=== PATIENT | male | born 1985 | race Caucasian/White ===

== ENCOUNTER 2017-05-27 07:58 | Emergency (ER) | payer OTHER ==
[~2017-05-27] VITALS: Ht 172.7 cm; Wt 88.5 kg
[2017-05-27 08:02] VITALS: TEMP 36.5; Ht 172.7 cm; Wt 88.5 kg
[2017-05-27 09:04] LABS: BASO % 0.3 %; BASO ABS # 0.03 K/uL (0-0.2); EOS ABS # 0.27 K/uL (0-0.5); HEMATOCRIT 47.4 % (42-52); HEMOGLOBIN 17.1 g/dL (14.0-18.0); IG# 0.02 K/uL (0.00-0.02); LYMPH % 29.9 %; LYMPH ABS # 2.68 K/uL (1.2-3.4); MEAN CELL VOLUME 87.3 fL (80-100); MEAN CORPUSCULAR HEMOGLOBIN 31.5 pg (25-34); MEAN CORPUSCULAR HGB CONC 36.1 g/dl (32-36); MEAN PLATELET VOLUME 9.6 fL (7.4-10.4); MONO % 6.6 %; MONO ABS # 0.59 K/uL (0.11-0.59); NEUT ABS # 5.36 K/uL (1.4-6.5); PLATELET COUNT 251 K/uL (130-400); RED CELL DISTRIBUTION WIDTH CV 12.9 % (11.5-14.5); RED CELL DISTRIBUTION WIDTH SD 41.3 fL (36.4-46.3); WHITE BLOOD COUNT 8.95 K/uL (4.8-10.8)
[2017-05-27 09:16] LABS: ALBUMIN 4.1 gm/dl (3.4-5.0); CALCIUM 9.3 mg/dl (8.5-10.1); CREATININE 0.92 mg/dl (0.60-1.40); POTASSIUM 3.8 mmol/L (3.5-5.1)
[2017-05-27 09:19] LABS: TOTAL PROTEIN 7.8 gm/dl (6.4-8.2)
--- NOTE | 2017-05-27 10:39 | DIAGNOSTIC IMAGING REPORT ---
ABDOMINAL ULTRASOUND, RIGHT UPPER QUADRANT HISTORY: Upper abdominal pain with postprandial nausea. COMPARISON: None. FINDINGS: Exam is mildly compromised by suboptimal penetration. Liver is sonographically normal. No gallstones are identified. There is no gallbladder wall thickening. No biliary ductal dilatation is present. The pancreatic body is normal. The head and tail are partially obscured. There is no right hydronephrosis. IMPRESSION: 1. No gallstones or biliary ductal dilatation identified. 2. Study mildly compromised by suboptimal penetration. Partially obscured pancreas. Electronically signed by: Sky Villatoro M.D. 05/27/2017 10:37 AM Dictated Date/Time: 05/27/2017 10:36 AM
--- NOTE | 2017-05-27 10:44 | EMERGENCY ROOM VISIT NOTE ---
History First contact with patient: 08:07 Chief Complaint: ABDOMINAL PAIN Stated Complaint: STOMACH PAINS, ACID BOWEL MOVEMENTS Nursing Triage Summary: patient c/o left abdominal pain that radiates to mid abdomen since thursday. patient c/o pain after every meal and drinking fluids. patient also c/o diarrhea. hx gallstone 2010. patient states he was suppose to have gallbladder out then but had liver issues d/t allergic reaction of a medication History of Present Illness The patient is a 32 year old male who presents to the Emergency Room via private vehicle with complaints of "stomach pains, acid bowel movements". The patient states that he is concerned he may be having trouble with his gallbladder. He states that 7 years ago he was told that he had gallstones and would have to have it removed however notes that he was unable to do so secondary to liver failure from the medication. He states that however recently he has been experiencing yellow/white bowel movements, very foul tasting eructation, as well as upper abdominal pain after eating. He states this began this past Thursday. There has been nausea, fever and loose stools. He states that he is not been able to eat secondary to the nausea and pain that he gets in the abdomen. He states that the pain is most left-sided. He denies any chest pain, shortness of breath or vomiting. He notes that he drank Pepsi daily. He also smokes. Review of Systems A complete 10-point Review of Systems was discussed with the patient, with pertinent positives and negatives listed in the History of Present Illness. All remaining Review of Systems questions can be considered negative unless otherwise specified. 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 lives locally with girlfriend and kids Current/Historical Medications Scheduled Omeprazole (Omeprazole), 1 TAB PO DAILY Physical Exam Vital Signs Date Time Temp Pulse Resp B/P (MAP) Pulse Ox O2 Delivery O2 Flow Rate FiO2 05/27/17 11:13 64 16 98/63 96 05/27/17 08:02 36.5 80 20 122/82 97 Room Air Physical Exam VITAL SIGNS - Vital signs and nursing notes were reviewed. Stable. GENERAL - 32-year-old male appearing his stated age who is in no acute distress. Communicates well with provider and answers questions appropriately. SKIN - Without rashes. HEAD - NC/AT. EYES -Sclera anicteric. EARS - No deformities of external structures noted on gross examination bilaterally. NOSE - Midline and without cyanosis. MOUTH/OROPHARYNX - Without perioral cyanosis. LUNGS - Chest wall symmetric without accessory muscle use, intercostals retractions, or central cyanosis. Normal vesicular breath sounds CTA B/L. No wheezes, rales, or rhonchi appreciated. CARDIAC - RRR with S1/S2. No murmur, rubs, or gallops appreciated. ABDOMEN - Abdominal contour normal without pulsations or visible masses. BS normoactive all four quadrants. L and R upper quadrant tenderness noted. No palpable masses, hepatosplenomegaly, or ascites noted. Medical Decision & Procedures ER Provider Diagnostic Interpretation: ABDOMINAL ULTRASOUND, RIGHT UPPER QUADRANT HISTORY: Upper abdominal pain with postprandial nausea. COMPARISON: None. FINDINGS: Exam is mildly compromised by suboptimal penetration. Liver is sonographically normal. No gallstones are identified. There is no gallbladder wall thickening. No biliary ductal dilatation is present. The pancreatic body is normal. The head and tail are partially obscured. There is no right hydronephrosis. IMPRESSION: 1. No gallstones or biliary ductal dilatation identified. 2. Study mildly compromised by suboptimal penetration. Partially obscured pancreas. Electronically signed by: Sky Villatoro M.D. 05/27/2017 10:37 AM Dictated Date/Time: 05/27/2017 10:36 AM Laboratory Results 05/27/17 08:45 Red Blood Count 5.43, Mean Corpuscular Volume 87.3, Mean Corpuscular Hemoglobin 31.5, Mean Corpuscular Hemoglobin Concent 36.1, Mean Platelet Volume 9.6, Neutrophils (%) (Auto) 60.0, Lymphocytes (%) (Auto) 29.9, Monocytes (%) (Auto) 6.6, Eosinophils (%) (Auto) 3.0, Basophils (%) (Auto) 0.3, Neutrophils # (Auto) 5.36, Lymphocytes # (Auto) 2.68, Monocytes # (Auto) 0.59, Eosinophils # (Auto) 0.27, Basophils # (Auto) 0.03 05/27/17 08:45 Test 05/27/17 08:45 White Blood Count 8.95 K/uL (4.8-10.8) Red Blood Count 5.43 M/uL (4.7-6.1) Hemoglobin 17.1 g/dL (14.0-18.0) Hematocrit 47.4 % (42-52) Mean Corpuscular Volume 87.3 fL (80-100) Mean Corpuscular Hemoglobin 31.5 pg (25-34) Mean Corpuscular Hemoglobin Concent 36.1 g/dl (32-36) Platelet Count 251 K/uL (130-400) Mean Platelet Volume 9.6 fL (7.4-10.4) Neutrophils (%) (Auto) 60.0 % Lymphocytes (%) (Auto) 29.9 % Monocytes (%) (Auto) 6.6 % Eosinophils (%) (Auto) 3.0 % Basophils (%) (Auto) 0.3 % Neutrophils # (Auto) 5.36 K/uL (1.4-6.5) Lymphocytes # (Auto) 2.68 K/uL (1.2-3.4) Monocytes # (Auto) 0.59 K/uL (0.11-0.59) Eosinophils # (Auto) 0.27 K/uL (0-0.5) Basophils # (Auto) 0.03 K/uL (0-0.2) RDW Standard Deviation 41.3 fL (36.4-46.3) RDW Coefficient of Variation 12.9 % (11.5-14.5) Immature Granulocyte % (Auto) 0.2 % Immature Granulocyte # (Auto) 0.02 K/uL (0.00-0.02) Anion Gap 7.0 mmol/L (3-11) Est Creatinine Clear Calc Drug Dose 125.8 ml/min Estimated GFR () 128.0 Estimated GFR (Non- 110.4 BUN/Creatinine Ratio 15.5 (10-20) Calcium Level 9.3 mg/dl (8.5-10.1) Total Bilirubin 0.7 mg/dl (0.2-1) Aspartate Amino Transf (AST/SGOT) 22 U/L (15-37) Alanine Aminotransferase (ALT/SGPT) 42 U/L (12-78) Alkaline Phosphatase 76 U/L (45-117) Total Protein 7.8 gm/dl (6.4-8.2) Albumin 4.1 gm/dl (3.4-5.0) Globulin 3.7 gm/dl (2.5-4.0) Albumin/Globulin Ratio 1.1 (0.9-2) Lipase 107 U/L (73-393) Medical Decision Patient was seen and evaluated as above. He presents to us today with upper quadrant abdominal pain that is worse postprandially followed by eructation and loose stools. Clinically presents with what is likely reflux related gastritis. He is nontoxic on exam. He declines pain medication. IV access was established, and the above workup was performed. Upper quadrant ultrasound was negative. There is no concern leukocytosis or anemia. Patient's metabolic panel reveals no evidence of kidney or liver failure. His vital signs are stable. He appears stable for outpatient management. He'll be started on a PPI , and is to use Tums acutely. He is to follow up with family doctor. He was educated upon management, educated upon worrisome symptoms in which to return, had questions answered at discharge, and was discharged home in good condition. In evaluation treatment this patient following differential diagnoses were entertained: Acid reflux, gastritis, [place], PE, pancreatitis, cholecystitis, among others. Impression Primary Impression: Reflux gastritis Departure Information Dispostion Home / Self-Care Condition GOOD Prescriptions Omeprazole (OMEPRAZOLE) 20 Mg Tab 1 TAB PO DAILY for 30 Days, #30 TAB 0 Refills Prov: Tom Carlos PA-C 05/27/17 Referrals No Doctor, Assigned (PCP) Patient Instructions [facility] Additional Instructions You have been treated in the Emergency Department your Abdominal Pain. Laboratory results and imaging studies have ruled out any emergent causes for your abdominal pain which would warrant admission or surgery. I suspect are likely experiencing stomach irritation secondary to acid production. Tums according to package I recommend decreasing foods high in acidity. I recommend beginning Prilosec/ omeprazole which is 1 tablet daily for 30 days. You must be reevaluated prior to continuing this. I recommend following up with the family doctor. Pain and there For pain control, you can use the following [id number] medicines - Regular strength (325mg/tab) Tylenol (acetaminophen) 2 tabs every 4-6 hours as needed. Do not exceed 12 tablets in a 24 hour period. Avoid taking more than 4 grams (4000 mg) of Tylenol per day. This includes any other sources of acetaminophen you may take on a regular basis. Drink plenty of water and stay well hydrated. As with any trip to the Emergency Department, you should follow-up with your Primary Care Provider from today's visit. Return to the emergency department if your symptoms persist despite treatment plan outlined above or if the following symptoms occur: increased fevers, chills , worsening nausea/vomiting, blood in your stool or urine.
[2017-05-27] MEDS ORDERED: OMEP20TA PO (10:57)
[2017-05-27 11:13] VITALS: BP 98/63; PULSE 64; O2SAT 96
== END 2017-05-27 11:14 | disposition home or self-care (01) ==
LOC: C.EDB 08:00 → C.EDA 11:14
DX: K21.9 Gastro-esophageal reflux disease without esophagitis (principal)